=== PATIENT | male | born 1960 | race Caucasian/White ===

== ENCOUNTER 2018-10-22 06:05 | Emergency (ER) | payer SELFPAY ==
[2018-10-22] MEDS ORDERED: Doxycycline 100 MG Cap PO ONE (06:38)
--- NOTE | 2018-10-22 06:45 | EDM.PDOC ---
ED HPI GENERAL MEDICAL PROBLEM - General Chief Complaint: ENT Problem Stated Complaint: NOSE SWOLLEN/PAINFUL Time Seen by Provider: 10/22/18 06:28 Source of Information: Reports: Patient, RN Notes Reviewed - History of Present Illness INITIAL COMMENTS - FREE TEXT/NARRATIVE: 57-year-old male comes in with right nasal infection. He states this first started about 5 or 6 days ago with discomfort right nose. He has had this intermittently in the past. He states normally he can apply some antibiotic ointment to the inner aspect of his nose and this will go away. This time the swelling and discomfort is worsening. There has been no drainage. No fever or chills. No other wounds or lesions at this time. Nose Pain Score (Numeric/FACES): 7 - Related Data Allergies Allergy/AdvReac Type Severity Reaction Status Date / Time No Known Allergies Allergy Verified 10/22/18 06:17 Home Meds: Home Meds Mupirocin Oint [Bactroban Oint] 22 gm .XX TID #1 tube 10/22/18 [Rx] Past Medical History Gastrointestinal History: Reports: GERD Genitourinary History: Reports: Urinary Incontinence Endocrine/Metabolic History: Reports: Diabetes, Type I - Infectious Disease History Infectious Disease History: Reports: MRSA, TB - Past Surgical History HEENT Surgical History: Reports: Tonsillectomy Social & Family History - Tobacco Use Smoking Status *Q: Current Every Day Smoker Years of Tobacco use: 40 Packs/Tins Daily: 1.5 - Caffeine Use Caffeine Use: Reports: Coffee - Recreational Drug Use Recreational Drug Use: No ED ROS ENT - Review of Systems Review Of Systems: See Below Constitutional: Denies: Fever, Chills HEENT: Reports: Nose Pain Respiratory: Denies: Shortness of Breath (Right nose), Cough GI/Abdominal: Denies: Abdominal Pain, Vomiting Musculoskeletal: Reports: No Symptoms Skin: Reports: Erythema (Localized right nose) ED EXAM, ENT - Physical Exam Exam: See Below General Appearance: Alert, No Apparent Distress Eye Exam: Bilateral Eye: PERRL Nose: Nasal Swelling (There is mild swelling and erythema of the soft tissue of the right lateral nares with mild tenderness left nose is not swollen or tender , the bridge of his nose is not swollen or tender internal nares also does show very mild swelling with no evidence of fluctuance or drainage at this time.), Other (Nasal septum is not swollen or tender) Mouth/Throat: Normal Inspection Head: Other (Remainder of face is not swollen warm or erythematous, periorbital tissue is not swollen or erythematous) Neck: Supple Respiratory/Chest: No Respiratory Distress Skin: Warm, Dry Lymphatic: Other (Skin is otherwise clear) Course - Vital Signs Last Recorded V/S: Last Vital Signs Temp 98.5 F 10/22/18 06:13 Pulse 93 10/22/18 06:13 Resp 20 10/22/18 06:13 BP 110/75 10/22/18 06:13 Pulse Ox 96 10/22/18 06:13 - Orders/Labs/Meds Meds: Medications Discontinued Medications Generic Name Dose Route Start Last Admin Trade Name Freq PRN Reason Stop Dose Admin Doxycycline Hyclate 200 mg 10/22/18 06:38 10/22/18 06:44 Vibramycin PO 10/22/18 06:39 200 mg ONETIME ONE Administration Departure - Departure Time of Disposition: 06:43 Disposition: Home, Self-Care 01 Condition: Fair Clinical Impression: Cellulitis Qualifiers: Site of cellulitis: face Qualified Code(s): L03.211 - Cellulitis of face - Discharge Information Prescriptions: Mupirocin Oint [Bactroban Oint] 22 gm .XX TID #1 tube Instructions: Cellulitis, Adult, [id number] Referrals: PCP,None [Primary Care Provider] - Forms: ED Department Discharge Additional Instructions: Bactroban ointment to area of swelling inflammation right nose 3 times daily until symptoms resolving, to cycling 200 mg or 2 tablets twice daily today and tomorrow and then go to 1 tablet twice daily for the remaining 8 days or until gone. Return to ED if this does develop into an infection around your eye with severe swelling of the tissue around your eye, severe eye discomfort or if you do start running a high fever or symptoms otherwise worsening in any way.
== END 2018-10-22 06:53 | disposition home or self-care (01) ==
LOC: JD.ED 06:05
DX: J34.0 Abscess, furuncle and carbuncle of nose (principal); E10.9 Type 1 diabetes mellitus without complications
CPT/HCPCS: 99283; A9270